=== PATIENT | female | born 1950 | race Caucasian/White ===

== ENCOUNTER 2016-12-22 07:49 | Inpatient (IN) | payer MEDICARE ==
--- NOTE | 2016-12-16 13:41 | NUR ---
JOINT CAMP: Patient attended [facility] joint camp, patient is coming in for total knee replacement. Patient is from home and is not the primary caregiver for anyone. Patient has 7 stairs to enter the home and then once inside the home patient has 20 stairs up and 20 stairs down. Patient's Mal Lazar will be assisting upon arrival home, Mal will also be doing transport day of discharge. Patient has help with getting breakfast made. Patient has never had home health services or senior care. Patient has been connected to outpatient physical therapy. Patient has a bath bench,toilet riser and walker at home.
[2016-12-22] VITALS (11 sets, daily range): BP systolic 119–130; BP diastolic 63–84; PULSE 63–90; RESP 12–18; O2SAT 92–98
[~2016-12-22] VITALS: Ht 177.8 cm; Wt 106.0 kg
[~2016-12-22 07:49] MED LIST: Bupivacaine Liposome 1.3% 20 mL Inj NERVEBLOCK ONE; CeFAZolin Inj 2 GM in IV Premix 1 EACH IV ONE; Lactated Ringer's 1,000 ML IV ONE
[2016-12-22] MEDS ORDERED: Vancomycin 1,000 mg/200 mL NS IV ONE ×2 (08:00→15:05)
[2016-12-22] MEDS: Vancomycin 1 Gm/200 mL NS Premix IV SCH ×3 (08:01→09:22)
[2016-12-22] MEDS ORDERED: IBUP200C11 PO (08:34)
[2016-12-22] MEDS ORDERED: Tranexamic Acid 100 mg/mL 10 mL Inj ONE ×2 (10:44→10:54)
[2016-12-22] MEDS ORDERED: 0.9% Sodium Chloride 100 ML ONE ×2 (10:44→10:54)
[2016-12-22] MEDS ORDERED: Bupivacaine Liposome 1.3% 20 mL Inj ONE (10:45)
--- NOTE | 2016-12-22 10:47 | PCM.HPANE ---
Patient Data Surgeon Admitting Provider: Attending Provider:Cabrera Franco MD Primary Care Physician:Richard Sheikh MD Other Provider:[facility] Reason for Visit Right Knee Arthritis RIGHT KNEE ARTHRITIS Ht/WT & BMI Height (Feet): 5 Height (Inches): 10.00 Weight (Kilograms): 105.950 Body Mass Index 33.00 Allergies Coded Allergies: erythromycin base (Verified Allergy, Unknown, UNKNOWN, 09/06/14) Past Anesthesia History Anesthesia History: Denies:: Abnormal Airway, Anesthesia Reactions, Difficult Intubation, Fam Anesthesia Reaction, Malignant Hyperthermia Diabetes History Hx Diabetes?: No MRSA MRSA: No Medications Home Meds Incl Beta Tiesha: No Reported Medications Ibuprofen (Advil)200 Mg [id number] Mg PO Q6 12/22/16 History History of ENT Problems?: Yes HEENT History: Positive for:: Cataracts (cataract forming, no surgical treatment) Sinus Problem (deviated septum) Denies:: Abnormal Airway Difficult Intubation Dysphagia Hearing Problem TMJ Hx of Heart Problems?: No Cardiovascular History: Denies:: AICD Abdominal Aortic Aneurism Atrial Fibrillation Cardiac Surgery Chest Pain Congestive Heart Failure Edema Heart Murmur Hypertension Irregular Heartbeat Pacemaker Rheumatic Fever Thrombophlebitis Hx of Respiratory Problem?: No Respiratory History: Positive for:: Pneumonia (walking pneumonia "long ago") Denies:: Asthma COPD Emphysema Oxygen Administration Tuberculosis Use of C-PAP Machine Hx Neurologic Problems?: Yes Neurological History: Positive for:: Headaches (related to deviated septum/ seasonal allergies) Denies:: Alzheimer's Disease CVA Dementia Dizziness Multiple Sclerosis Parkinson's Disease Seizures Hx of GI Problems?: Yes Gastrointestinal History: Positive for:: Heartburn (occasional only) Denies:: Cirrhosis Diverticulitis Gastroesphageal Reflux Gastrointestinal Bleeding Hepatitis Hiatal Hernia Rectal Bleeding Hx of Problems?: No Genitourinary History: Denies:: Kidney Stones Urinary Tract Infection Female Hx: Positive for:: Endometriosis Denies:: Currently Problems with Breasts? (breast reduction mammoplasty ) Skin History: Positive for:: History Skin Disorders? (laura- MD aware) Hx Musculoskeletal Problems?: Yes Musculoskeletal History: Positive for:: Degenerative Joint Musculoskeletal Trauma (right knee current admission problem) Osteoarthritis Denies:: Back Injury Joint Replacement Systemic Lupus Hx of Psycho/Social Problems?: No Psycho Social History: Denies:: Anxiety Hx Depression Hx Surgeries?: Yes (knee scope, breast reduction, tonsil, right achilles tendon ) Hx Any Other Health Problems?: Yes Other History: Positive for:: Cancer (right conjuctival cancer- radiation tx) Denies:: Thyroid Disease History Blood Transfusions: Denies:: Blood Transfusions Hx Diabetes: No Hx Alcohol Use: YesHx Substance Use: Yes (cannabis cream to knee ) Smoking Status: Former Smoker Have You Smoked inLast 12 mo: No Stop/Bang S-Snoring: Do You Snore Loudly: No T-Tired: feel tired, fatigued: No O-Obsered: Observed not breath: No P-Blood Pressure: treated: No B- Body Mass Index > 35 kg/m2: No A- Age over 50: Yes N- Neck Large Circumference: No G- Gender Male: No EDI Total Score: 1 Risk Assessment Category Category 1A: Patient has history of documented sleep apnea, and HAS NOT received any narcotic, sedative or anesthesia administration during this stay. Category 1B: Patient has history of documented sleep apnea, and HAS received any narcotic , sedative or anesthesia administration during this stay Category 2: Patient has SUSPECTED Obstructive Sleep Apnea, and HAS received any narcotic , sedative or anesthesia administration during this stay. Category 3: Patient has SUSPECTED Obstructive Sleep Apnea and HAS NOT received narcotic, sedative or anesthesia administration during this stay. Category 4: Outpatient in Procedural Areas with known sleep apnea or who screen positive for High Risk via the STOP/BANG questionnaire. Exam Exam Vital Signs Vital Signs Date Time Temp Pulse Resp B/P Pulse Ox O2 Delivery O2 Flow Rate FiO2 12/22/16 08:58 36.2 71 17 130/84 96 Room Air General Appearance: Alert, Oriented X3, Cooperative, No Acute Distress HEENT/AIRWAY: MP 2 Lungs: Clear to Auscultation Heart: Exam Unremarkable Meds/Labs/Diagnostics Admission Meds Current Medications Lactated Ringer's 1,000 ml @ 120 mls/hr Q8H20M ONCE IV Last administered on 08:32; Start 12/22/16 at 05:00; Stop 12/22/16 at 13:19 Vancomycin/0.9 % Sod Chloride/ Premix (Vancomycin Inj/ IV Premix) 200 ml @ 133.333 mls/hr PREOP IV Last administered on 12/22/16 08:01; Start 12/22/16 at 06:00 Plan Impression Patient chart reviewed, patient interviewed and anesthestic plan with risks, benefits, and alternatives discussed, and informed consent obtained. NPO Status: 2100 12/21/16 ASA Physical Status: ASA2 Mod Systemic Disease Anesthetic Plan: Regional Block (fnb), SAB Bene/Risks/Altern/Consents: Yes HP Complete Prior to Induction: Yes Edouard Poole MD Dec 22, 2016 10:47
[2016-12-22] MEDS ORDERED: Bupivacaine-MPF 0.25%/EPI 30 mL Inj INJ ONE (11:36)
[2016-12-22] MEDS ORDERED: Gentamicin 40 mg/mL 2 mL Inj IRRIGATION ONE (11:38)
[2016-12-22] MEDS ORDERED: Lactated Ringer's 1,000 ML IV SCH (12:03)
[2016-12-22] MEDS ORDERED: Lactated Ringer's 500 ML IV PRN (12:03)
[2016-12-22] MEDS ORDERED: Dexamethasone 4 mg/mL Inj IVPUSH PRN (12:05)
[2016-12-22] MEDS ORDERED: fentaNYL-PF 50 mCg/mL 2 mL Inj IVPUSH PRN (12:05)
[2016-12-22] MEDS ORDERED: EPHEDrine Sulfate 50 mg/mL Inj IVPUSH PRN (12:05)
[2016-12-22] MEDS ORDERED: Phenylephrine 10,000 mCg/mL Inj IVPUSH PRN (12:05)
[2016-12-22] MEDS ORDERED: Ondansetron 2 mg/mL 2 mL Inj IVPUSH PRN ×2 (12:05→14:15)
[2016-12-22] MEDS ORDERED: MetoCLOpramide 5 mg/mL 2 mL Inj IVPUSH PRN ×2 (12:05→14:15)
[2016-12-22] MEDS ORDERED: HYDROmorphone 1 mg/mL Inj IVPUSH PRN (12:05)
[2016-12-22] MEDS ORDERED: fentaNYL-PF 50 mCg/mL 2 mL Inj ONE (13:36)
[2016-12-22] MEDS ORDERED: Bupiv-Spinal 0.75%/Dex 8.25% 2 mL Inj ONE (13:36)
[2016-12-22] MEDS ORDERED: Propofol 10,000 mCg/mL 20 mL Inj ONE (13:36)
[2016-12-22 13:51] LABS: APPEARANCE,URINE HAZY (CLEAR,HAZY); COLOR,URINE STRAW (YELLOW); OCCULT BLOOD,URINE NEGATIVE (NEGATIVE); UROBILINOGEN,URINE NORMAL (NORMAL)
--- NOTE | 2016-12-22 13:51 | DRSVH ---
PROCEDURE: X-RAY RIGHT KNEE, ONE OR TWO VIEWS ([id number]) INDICATIONS: POST RIGHT TKA TECHNIQUE: 2 view(s) of the knee acquired. COMPARISON: None. FINDINGS: Bones: Patient is status post knee joint arthroplasty. Hardware components are in expected position s. Visualized bony structures are intact. Soft tissues: Overlying postoperative changes are noted. IMPRESSION: Expected appearance status post placement of right knee arthroplasty. Dictated by: Aleksey JARAMILLO Interpreted: Awa Lennon MD on 12/22/2016 at 13:50 Transcribed by: JOE on 12/22/2016 at 13:51 Approved by: Awa Lennon M.D. on 12/23/2016 at 10:38
[2016-12-22] MEDS: Lactated Ringer's 1,000 ML IV SCH (14:12)
[2016-12-22] MEDS ORDERED: hydrOXYzine Pamoate 25 mg Capsule PO PRN (14:15)
[2016-12-22] MEDS ORDERED: Vancomycin Dose per Pharmacist XX ONE (14:15)
[2016-12-22] MEDS ORDERED: HYDROcodone-APAP 5-325 mg Tablet PO PRN (14:15)
[2016-12-22] MEDS ORDERED: Magnesium Hydroxide 10 mL Oral Concentration PO PRN (14:15)
[2016-12-22] MEDS ORDERED: diphenhydrAMINE 25 mg Capsule PO PRN ×2 (14:15→15:05)
[2016-12-22] MEDS ORDERED: Sodium Biphos-Phos 133 mL Enema RECTAL PRN (15:05)
--- NOTE | 2016-12-22 15:08 | PCM.ANEP1 ---
Post Anesthesia Phase 1 PACU Phase 1 Assessment Vital Signs Vital Signs Date Time Temp Pulse Resp B/P Pulse Ox O2 Delivery O2 Flow Rate FiO2 12/22/16 13:36 36.5 65 16 127/78 95 Room Air 12/22/16 13:05 63 12 122/68 96 Room Air 12/22/16 13:04 12 97 12/22/16 12:55 36.6 71 14 126/67 98 Room Air 12/22/16 12:50 75 14 119/78 97 Room Air 12/22/16 12:45 85 14 122/77 97 Room Air 12/22/16 12:40 14 96 12/22/16 12:40 71 14 126/63 97 Room Air 12/22/16 12:35 36.1 90 14 120/79 94 Room Air 12/22/16 08:58 36.2 71 17 130/84 96 Room Air Anesthetic Administered: Regional Block, SAB Level of Alertness: Awake, talking CHAN's with Equal Strength: No Pain: No Nausea or Vomiting: No Oxygen Delivery: Room Air Lungs: Clear to Auscultation Dermatome Level: L3,4 (Thigh) Edouard Poole MD Dec 22, 2016 15:08
--- NOTE | 2016-12-22 15:09 | PCM.ANEP2 ---
Post Anesthesia Evaluation ASA/CMS Post Anesthesia VS in Patient's Normal Range?: Yes Resp Stable; Airway Patent?: Yes CV Function & Hydration Stable: Yes Mental Status Recovered?: Yes Pain control Satisfactory?: Yes N/V Control Satisfactory?: Yes Edouard Poole MD Dec 22, 2016 15:09
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
[2016-12-22] MEDS ORDERED: Ondansetron 8 mg ODT Tablet PO PRN (15:20)
--- NOTE | 2016-12-22 15:59 | NUR ---
Evaluation completed. Please go to "Notes" then click on "Assessments and Notes" (bottom left corner of screen). Then select appropriate discipline tab on top of screen.
[2016-12-22] MEDS: hydrOXYzine Pamoate 25 mg Capsule PO PRN ×2 (16:42→21:31)
[2016-12-22] MEDS: CeFAZolin Inj 2 GM in IV Premix 1 EACH IV SCH (21:37)
--- NOTE | 2016-12-22 22:34 | OP ---
[address] [address] OPERATIVE REPORT PATIENT: AKIN BEST : 1950 MR#: [id number] ADMIT: 12/22/2016 JOB ID: [id number] DATE OF SURGERY: 12/22/2016 PREOPERATIVE DIAGNOSIS(ES): Advanced arthritis, medial compartment of right knee with lateral compartment changes. POSTOPERATIVE DIAGNOSIS(ES): Advanced arthritis, medial compartment of right knee with lateral compartment changes. PROCEDURE: Total knee replacement. SURGEON: Cabrera Franco MD. HELMET COVERER: Mellisa Yee PA-C. Emblem Drawer In required due to the complexity of the operation. INDICATIONS: This woman has had progressive and now very significant disability associated with her knee. She elects to proceed with a knee replacement. She understands and accepts the potential for risks and complications, which includes, but is not limited to, infection, thromboembolic, neurovascular events, as well as potential for implant failure. Understanding these, she wishes to proceed. PROCEDURE: The patient is prepped and draped in the usual sterile fashion. An anteromedial approach made. Dissection was carried down. The patella was subluxed laterally, cut transversely, sized to a 32. Patellar component drill holes were made for this. Patellar protection plate was utilized. Drill hole placed in the distal femur and a 5 degree valgus cut was made. The femur was sized to a 7 chamfer block fixed in appropriate position. Rotation, drill holes and chamfer cuts were made. The tibia was cut with the extramedullary tool sized to an E tibial component, fixed in appropriate position, rotation, excellent patellar tracking, soft tissue tension, flexion, extension and balance were noted. Wounds irrigated with sterile irrigation intermittently through the procedure. The tibial plate was placed in appropriate position, rotation, drill holes, punch were utilized. Trial reduction was performed. A 10 mm polyethylene produced excellent soft tissue tension and tracking. All meniscal tissue and osteophytes were carefully removed. Pressurized lavage was followed by pressurized cementation of the components. Excess cement was removed during the curing process. The patient was taken to the recovery room in stable condition. She tolerated the procedure well. There were no complications.
[2016-12-23 00:19] VITALS: BP 120/71; PULSE 70; RESP 18; O2SAT 94
[2016-12-23] MEDS: hydrOXYzine Pamoate 25 mg Capsule PO PRN ×4 (02:49→19:20)
[2016-12-23] MEDS: Lactated Ringer's 1,000 ML IV SCH ×2 (02:51→23:21)
--- NOTE | 2016-12-23 04:13 | NUR ---
Pain Patient states pain level is 8/10 on pain scale. Roxicodone and Vistaril administered x 2 during shift. . Ice applied to right knee. Patient has good movement with right lower extremity. Advise patient to call for breakthrough pain. Patient bedrest throughout shift. Estrada draining to gravity. LEONILA drain draining sanguinous fluid. VSS. Call light within reach. Care continues.
[2016-12-23 04:22] VITALS: BP 109/67; PULSE 72; RESP 18; O2SAT 96
[2016-12-23] MEDS: CeFAZolin Inj 2 GM in IV Premix 1 EACH IV SCH (05:15)
[2016-12-23 07:09] LABS: BASOPHILS % (AUTO) 0.1 % (0-3); EOSINOPHILS % (AUTO) 0.1 % (0-5); MONOCYTES % (AUTO) 6.8 % (4-12); Mean Corpuscular Hemoglobin 29.2 pg (27.0-35.0); Mean Corpuscular Volume 85.7 fL (81-100); NEUTROPHILS % (AUTO) 79.6 % (40-74); Platelet Count 236 bil/L (150-400)
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
[2016-12-23] MEDS ORDERED: VANCOMYCIN IV ONE (08:00)
[2016-12-23 10:09] VITALS: BP 92/63; PULSE 66; O2SAT 97
[2016-12-23 10:11] VITALS: BP 116/67; PULSE 61; RESP 18; O2SAT 96
[2016-12-23 14:30] VITALS: BP 125/70; PULSE 75; RESP 18; O2SAT 94
[2016-12-23 19:47] VITALS: BP 157/75; PULSE 79; RESP 20; O2SAT 96
[2016-12-24] MEDS: hydrOXYzine Pamoate 25 mg Capsule PO PRN ×4 (00:43→12:46)
[2016-12-24] MEDS: oxyCODONE-Acetamin 5-325 mg Tablet PO PRN ×4 (00:45→12:46)
[2016-12-24 00:54] VITALS: BP 155/80; PULSE 64; RESP 20; O2SAT 96
--- NOTE | 2016-12-24 03:01 | NUR ---
IV left arm On initial assessment, patient's IV site was red and swollen. IV saline locked. Warm packs applied to arm wrapped in a warm blanket. Patient expressed anxiety about IV site. Patient reassured. Pain medication administered for knee pain with patient stating pain at 8/10 on pain scale. Blood pressure elevated at 157/75. All other VSS. Call light within reach. Care continues.
[2016-12-24 05:37] VITALS: BP 156/85; PULSE 87; RESP 20; O2SAT 96
--- NOTE | 2016-12-24 06:10 | NUR ---
Elevated BP Patient's blood pressure has steadily increased in the past 24 hours. Patient is concerned about blood pressure and about being discharged today with the amount of pain she is experiencing . Patient was reassured that this information would be passed on to the next shift.
--- NOTE | 2016-12-24 06:55 | PCM.PNORTH ---
Subjective Date of Service: Dec 24, 2016 Visit Information: Reason for Visit Right Knee Arthritis Surgery/Surgery Date R TKA 12/22/16 Post-Op Day # Date of Admission: Dec 22, 2016 at 13:35 Hospital Day # Subjective Foundation awake and alert this morning and sitting up in bed. Patient displays and verbalizes severe anxiety as morning about every phase of her care and everything that she is feeling. I have reassured her numerous times this morning that what she is experiencing is normal and that she is doing well generally. I explained to her that she has suffered a mild infiltration and some irritation at her IV site and that this is managed with heat in the area. This has been reviewed by the nurse with IV therapy and is any reasonable correct course of action. I explained to her IV will be discontinued today and this will help ease the situation. I explained to the patient this morning after removing her dressing that her wound is in good condition and I see no problems or issues there. I have explained to her in detail how to manage her bandaging and what she should physically be doing on discharge and I have assured her that she will have discharge instructions regarding these issues. I will also reassure the patient that she may call our office at any time if she has questions or concerns about any phase or specific issue regarding her care. We have discussed discharged today which I think is appropriate based on her activity level yesterday Postop General: No Complaints, No Shortness of Breath, No Chest Pain Pain Management: PO Objective Exam Objective Alert and oriented 3 and pleasant and extremely anxious. Interoperative dressing is removed this morning and replaced with an ABDs and fishnet dressing. Patient's operative wound is in good condition and displays no drainage and no focal erythema or swelling. Calf and thigh are soft and nontender. Toe wiggle and sensation are intact at right lower extremity distally. Estrada and wound drain are absent. Patient displays some mild swelling and redness at the left upper arm at the side of her IV which is managed with heat at this time per nursing. Patient achieved the feet in gait yesterday with formal physical therapy. Vital Signs and I/O Vital Sign - Last Date Time Temp Pulse Resp B/P Pulse Ox O2 Delivery O2 Flow Rate FiO2 12/24/16 05:37 36.8 87 20 156/85 96 Room Air Intake and Output 12/23/16 12/23/16 12/24/16 Cumulative From/Thru 15:00 23:00 07:00 12/18/16 11:44 - 12/24/16 06:16 Intake Total 2000 ml 1238 ml 6800 ml Output Total 760 ml 3260 ml Balance 1240 ml 1238 ml 3540 ml Intake Oral 2000 ml 3350 ml IV Total 1238 ml 3450 ml Output Urine Total 700 ml 3170 ml Drainage Total 60 ml 90 ml # Voids 1 1 # Bowel Movements 0 Result Diagram: 12/23/16 0645 General Appearance: Alert, Oriented X3, Cooperative, No Acute Distress Extremities: No Compartment Syndrom Noted, Thigh & Calf Soft/Nontender Postop Sensory Motor: Distal Motor Intact, Movement in Toes, Distal Sensation Intact SURGICAL WOUND : Drain Location Body Site: Knee Wound Drainage Type: Hemovac Activity: Activity per PT, Ambulate with PT (weightbearing as tolerated on the right lower extremity using a front wheeled walker) Catheters: None Assessment & Plan Impression Patient is a 66-year-old old female whom has undergone a right total knee arthroplasty on 12/22/2016 and is postoperative day #2. She has a tendency to foster anxiety and is struggling with this today. Her course is well within normal limits and she is doing well at this time. Problems: Plan Postop day 2 from right total knee arthroplasty performed on 12/22/[address] Cabrera rFanco. Weightbearing as tolerated on the right lower extremity using a front wheeled walker. Continue formal physical therapy for mobility, gait and safety. Patient has arranged outpatient physical therapy to begin soon after discharge. Continue Percocet 5/325 with supplemental Roxicodone as needed for pain control with addition of Vistaril 25-50 mg as needed. Continue ASA 325 mg daily while in house with transition to ASA 81 mg twice a day on discharge for DVT prophylaxis. Interoperative dressing is removed today and wound is found to be in good condition. Silverlon is rewet and left in place and an ABD and fishnet dressing are put in place today. Hemovac drain and Estrada are absent. Patient may shower the wound in 3-4 days if the wound is dry and displaying no drainage for 24 hours. Otherwise the wound may be kept covered with an ABG and fishnet dressing until seen in office in 2 weeks. Follow-up in 2 weeks at [facility] clinic on prearranged appointment with mid-level provider for wound check and suture removal. Follow-up in 6 weeks at [facility] orthopedic clinic on prearranged appointment with Dr. Cabrera Franco with right 2 view knee x-rays on arrival. Anticipate discharge to home today with family has caregivers on postop day #2, 12/24/2016.. VTE Prophylaxis: SCDs (SCD and left lower extremity), BRAEDEN Hose (BRAEDEN hose may be applied bilaterally today by nursing.), Other (ASA 325 mg daily while inpatient for DVT prophylaxis) David Juarez PA-C Dec 24, 2016 06:55
--- NOTE | 2016-12-24 07:05 | PCM.DIORTH ---
Ortho Discharge Instruction Date of Service: Dec 24, 2016 Dates of Hospitalization Date of Hospital Admission Dec 22, 2016 at 13:35 Providers Admitting Physician: Cabrera Franco MD Primary Care Physician: Richard Sheikh MD Attending Physician: Cabrera Franco MD Diet Discharge Diet: No restrictions Activity Discharge Activity-General: Try not to overdue, Be up and about, Balance rest and activity, Ice incision 3-5 time/day for 20min, Activity as pain allows, Activity as energy allows, No driving while taking narcotic Right Lower Extremity: Weight Bearing as tolerated Discharge Assist Device: Front Wheeled Walker Dressing and Incisional Care Discharge Dressing Care: Keep dressing clean, dry & intact, Change soiled dressing Discharge Hygiene: May shower (patient may shower as long as dressing is Clean and dry. Patient may remove dressing in 3-4 days and shower wound as long as it has been dry for 24 hours prior to this.), DO NOT soak incision under water, NO bathtub, hot tub or whirlpool Additional Instructions Discharge Instructions Postop day 2 from right total knee arthroplasty performed on 12/22/[address] Cabrera Franco. Weightbearing as tolerated on the right lower extremity using a front wheeled walker. Continue formal physical therapy for mobility, gait and safety. Patient has arranged outpatient physical therapy to begin soon after discharge. Continue Percocet 5/325 with supplemental Roxicodone as needed for pain control with addition of Vistaril 25-50 mg as needed. Continue ASA 325 mg daily while in house with transition to ASA 81 mg twice a day on discharge for DVT prophylaxis. Interoperative dressing is removed today and wound is found to be in good condition. Silverlon is rewet and left in place and an ABD and fishnet dressing are put in place today. Hemovac drain and Estrada are absent. Patient may shower the wound in 3-4 days if the wound is dry and displaying no drainage for 24 hours. Otherwise the wound may be kept covered with an ABG and fishnet dressing until seen in office in 2 weeks. Follow-up in 2 weeks at [facility] orthopedic clinic on prearranged appointment with mid-level provider for wound check and suture removal. Follow-up in 6 weeks at [facility] orthopedic clinic on prearranged appointment with Dr. Cabrera Franco with right 2 view knee x-rays on arrival. Anticipate discharge to home today with family has caregivers on postop day #2, 12/24/2016 Follow Up Plan Follow Up Plan Patient will be seen at 2 weeks, 6 weeks and 12 weeks postoperatively. Patient will be seen when necessary in the interim. Follow-up Provider (F9): Cabrera Franco MD Mid-level Provider (F9): Mellisa Yee PA-C Follow-up appointment: Weeks (follow-up in 2 weeks at [facility] orthopedic clinic on prearranged appointment with mid-level provider for wound check and suture removal.) Call your provider for: Fever, Chills, Shortness of breath, Vomitting, Drainage at incision David Juarez PA-C Dec 24, 2016 07:05
[2016-12-24] MEDS ORDERED: ASPI-973 PO (07:13)
[2016-12-24] MEDS ORDERED: OXYC1TAB24 PO (07:13)
[2016-12-24] MEDS ORDERED: DOCU-41 PO (07:13)
[2016-12-24] MEDS ORDERED: HYDR-3797 PO (07:13)
--- NOTE | 2016-12-24 07:16 | PCM.DC.ORT ---
Discharge Summary Date of Service: Dec 24, 2016 Date of Hospital Admission: Dec 22, 2016 at 13:35 Date of Surgery: Dec 22, 2016 Date of Discharge: Dec 24, 2016 Reason for Hospitalization: Severe right knee osteoarthritis Procedures Performed: Right total knee arthroplasty Hospital Course: Patient was admitted to the preoperative care unit on 12/22/2016 and upon processing was taken to the operating room where her procedure was performed without incident. Upon awakening patient was taken to the recovery room and upon recovery from anesthesia was transferred to the orthopedic care unit where she participated well with formal physical therapy and received recommendation for discharge on postop day 2. Problems: (1) Osteoarthritis Status: Acute ICD Code: M19.90 Disposition: Discharged to home with family as caregivers Orthopedic Follow up Plan: In Two Weeks in my clinic (Patient will be seen at 2 weeks, 6 weeks and 12 weeks postoperatively. Patient will be seen when necessary in the interim.) Discharge Instructions: Postop day 2 from right total knee arthroplasty performed on 12/22/[address] Cabrera Franco. Weightbearing as tolerated on the right lower extremity using a front wheeled walker. Continue formal physical therapy for mobility, gait and safety. Patient has arranged outpatient physical therapy to begin soon after discharge. Continue Percocet 5/325 with supplemental Roxicodone as needed for pain control with addition of Vistaril 25-50 mg as needed. Continue ASA 325 mg daily while in house with transition to ASA 81 mg twice a day on discharge for DVT prophylaxis. Interoperative dressing is removed today and wound is found to be in good condition. Silverlon is rewet and left in place and an ABD and fishnet dressing are put in place today. Hemovac drain and Estrada are absent. Patient may shower the wound in 3-4 days if the wound is dry and displaying no drainage for 24 hours. Otherwise the wound may be kept covered with an ABG and fishnet dressing until seen in office in 2 weeks. Follow-up in 2 weeks at [facility] orthopedic clinic on prearranged appointment with mid-level provider for wound check and suture removal. Follow-up in 6 weeks at [facility] orthopedic clinic on prearranged appointment with Dr. Cabrera Franco with right 2 view knee x-rays on arrival. Anticipate discharge to home today with family has caregivers on postop day #2, 12/24/2016 Management Plan: Patient will be seen at 2 weeks, 6 weeks and 12 weeks postoperatively. Patient will be seen when necessary in the interim. Aspirin (Aspirin) 81 Mg Tablet 81 MG PO BID Docusate Sodium (Colace) 100 Mg Capsule 100 MG PO BID Hydroxyzine Pamoate (HydrOXYzine Pamoate) 25 Mg Capsule 25-50 MG PO Q4-6H PRN PRN For Restlessness oxyCODONE-Acetaminophen 5-325 mg (oxyCODONE-Acetaminophen 5-325 mg) 1 Each Tablet 1-2 TAB PO Q4-6H PRN PRN For Severe Pain David Juarez PA-C Dec 24, 2016 07:16
--- NOTE | 2016-12-24 11:07 | NUR ---
Social Work-initial assessment/discharge: Data:See initial assessment. Pt is a 66 y/o female who was admitted on 12/22/16 for right knee arthritis per H&P. Pt's insurance is [employer] and [employer]. Pt's PCP is Richard Sheikh MD. EMR reviewed. SW met with pt at bedside to discuss discharge planning, SW role explained. Pt is alert and oriented x3. Pt resides at home with her where she remains independent with ADLS. Pt does not use any DME and drives. Pt has no HH or SNF history. Pt has no [place] [facility] care or [place] benefits. SW discussed DPOA/ advanced directive and pt confirms she has completed this, SW encouraged a copy to be brought into the hospital. PT has cleared pt for home with outpt services. Pt has fww for home use. Pt is medically stable for discharge home today. Pt states she has outpt PT services set up and her will provide transport home today. No discharge needs identified. All updated and agreeable to plan. Assessment:Pt who is independent at baseline. Plan:Pt to discharge home today via POV. Pt to complete outpt PT services. No discharge needs identified. All updated and agreeable to plan. AICHA Suresh Addendum: 12/24/16 at 1109 by ADELINA CARROLL Amended: Links added.
--- NOTE | 2016-12-24 14:04 | NUR ---
Discharge Pt discharged to home with spouse via private vehicle at 1400 hrs. PIV removed intact. VSS. Pain controlled. All personal possessions sent with pt. Discharge and follow up instructions given to pt and she expressed understanding.
== END 2016-12-24 13:45 | disposition home or self-care (01) | DRG 470 ==
LOC: SAS 07:49 → OSC 13:35
PROVIDERS: ADMIT Orthopaedic Surgery; ATTEND Orthopaedic Surgery
PROC: 0SRC0J9 Replacement of Right Knee Joint with Synthetic Substitute, Cemented, Open Approach (ICD-10-PCS; principal; 2016-12-22 09:30)
DX: M17.11 Unilateral primary osteoarthritis, right knee (principal)

== ENCOUNTER 2016-12-28 14:16 | Emergency (ER) | payer MEDICARE ==
[~2016-12-28] VITALS: Ht 175.3 cm; Wt 104.5 kg
[~2016-12-28 14:16] MED LIST changes: +ASPI-973 PO; -Bupivacaine Liposome 1.3% 20 mL Inj NERVEBLOCK ONE; -CeFAZolin Inj 2 GM in IV Premix 1 EACH IV ONE; +DOCU-41 PO; +HYDR-3797 PO; -Lactated Ringer's 1,000 ML IV ONE; +OXYC1TAB24 PO
[2016-12-28 14:35] VITALS: BP 147/84; PULSE 91; RESP 20; O2SAT 94
--- NOTE | 2016-12-28 15:09 | ED.REPORT ---
HPI-Extremity Problem Lower Date of Service Dec 28, 2016 ED Provider: Paige Lamar History of Present Illness: 66-year-old female here for right calf pain. Onset on morning and is gradually getting worse. It is worse with extension and flexion of her ankle. Pain is gone if she is just resting. Pain is most severe with walking pushing off the tip of her toe. She had a total knee replacement done on Thursday 6 days ago. She was discharged from the hospital on Thursday and the pain started the next day. She noticed a slight fever and feeling febrile today. Took her temperature at home and was 99 6. No runny nose, cough, nausea, vomiting. Her incision site is nonpainful, her knee is actually not painful. He has not noted any purulent drainage from the incision site. Taking 81 mg of aspirin twice a day. She is not on estrogens and she has no previous history of DVT. Denies shortness of breath or chest pain Nursing Notes Stated Complaint: POSS DVT,PAIN IN CALF AFTER KNEE REPLACEMENT Chief Complaint: Extremity Trauma Nursing Notes Reviewed: Yes Allergies: Coded Allergies: erythromycin base (Verified Allergy, Unknown, UNKNOWN, 12/28/16) Scheduled Aspirin (Aspirin) 81 Mg Tablet 81 MG PO BID Docusate Sodium (Colace) 100 Mg Capsule 100 MG PO BID Scheduled PRN Hydroxyzine Pamoate (HydrOXYzine Pamoate) 25 Mg Capsule 25-50 MG PO Q4-6H PRN PRN For Restlessness oxyCODONE-Acetaminophen 5-325 mg (oxyCODONE-Acetaminophen 5-325 mg) 1 Each Tablet 1-2 TAB PO Q4-6H PRN PRN For Severe Pain General Time Seen by MD: 14:53 Chief Complaint Knee injury right Hx Obtained From: Patient Arrived By: Walk-in Onset Occurred: 4 days ago Symptom Duration: Waxes and wanes Location: : Leg right Severity: Current: No pain currently Severity: Maximum: Moderate Pertinent Negative: Pt denies other symptoms Exacerbated by: Range of motion, Movement Relieved by: Rest Recent Healthcare: Recent hospitalization, Previous surgery Similar Sx Previous: No Risk-Extremity Prob Lower Well's Criteria for DVT Immob lower ext (1), Bed >3d/Surg in 4wks (1) Well's DVT Score: 1-2 pts (mod risk 33%) Past Medical History Smoking History Former Smoker Review of Systems Review of Systems Note: R calf pain Basic Review of Systems Eyes: Vision NL, No discharge ENT: Hearing NL, No pain, No nasal congestion, No pharyngeal pain Respiratory: No shortness of breath, No cough, No wheeze Cardiovascular: No chest pain, No dyspnea on exertion, No orthopnea, No parox noct dyspnea, No palpitations GI: No abdominal pain, No anorexia, No nausea, No vomiting Allergy / Immune: No allergy Psychiatric: Normal thought content Constitutional: Reports: Fever Musculoskeletal: Reports: Extremity pain, Extremity swelling Complete sys rev & neg: except as marked. Physical Exam Initial Vital Signs Vital Signs (First) Date Time Temp Pulse Resp B/P Pulse Ox O2 Delivery O2 Flow Rate FiO2 12/28/16 14:35 36.8 91 20 147/84 94 Room Air Initial VS: Vital signs normal General/Constitutional: Well-developed Head / Eyes: Atraumatic, Normocephalic, PERRL Respiratory: Breath sounds normal, Clear to auscultation, No respiratory distress Cardiovascular: Regular rate & rhythm, Heart sounds normal, Intact distal pulses Skin: Warm, Dry, No cyanosis Neurologic: Alert, Oriented, Nonfocal Psychiatric: Mood/affect normal, Behavior normal, Normal thought content Right Knee: Positive: Ecchymosis present, ROM painful, ROM reduced, Swelling present... (Mild), Tenderness present... (Mild), Negative: Erythema present, Warmth present Right Leg / Calf: Positive: Ecchymosis present, Swelling present... (Mild), Tenderness present... (Mild), Negative: Erythema present, Warmth present large area of eccymosis at inner R upper thigh. incision site without erythema, purulent drainage, swelling or tenderness. Surgical site healing well. Most Tender at lower calf/upper achilles tendon. MOderate tenderness with palp of calf. Not obviously enlarged compared to left Interpretation & Diagnostics Interpretation & Diagnostics: Patient Name: AKIN BEST MR#: [id number] [place] [facility] [place] Phys: Paige Lamar Date of Service: 12/28/16 1519 PROCEDURE: US VEINOUS LEG DUPLEX UNILATERAL, RIGHT INDICATIONS: calf pain wtih previous surgery TECHNIQUE: Real-time imaging, as well as color and pulse Doppler interrogation, were performed of the lower extremity deep veins from the inguinal ligament to the popliteal fossa. COMPARISON: None. FINDINGS: The deep veins are normally compressible, and free of intraluminal thrombus. Color and pulse Doppler demonstrate normal phasic intraluminal flow. There is normal augmentation response to distal compression maneuver. IMPRESSION: No evidence of right lower extremity DVT. Lab Results Interpretation Result Diagram: 12/28/16 1550 12/28/16 1550 Test 12/28/16 15:50 White Blood Count 7.3th/mm3 (3.8-10.1) Red Blood Count 4.28mil/mm3 (3.90-5.20) Hemoglobin 12.4g/dL (12.0-15.6) Hematocrit 35.9% (35.0-46.0) Mean Corpuscular Volume 83.9fL (81-100) Mean Corpuscular Hemoglobin 29.0pg (27.0-35.0) Mean Corpuscular Hemoglobin Concent 34.5% (32.0-37.0) Red Cell Distribution Width 12.1% (12.3-15.4) Platelet Count 315bil/L (150-400) Neutrophils (%) (Auto) 72.8% (40-74) Lymphocytes (%) (Auto) 17.5% (14-46) Monocytes (%) (Auto) 7.6% (4-12) Eosinophils (%) (Auto) 1.7% (0-5) Basophils (%) (Auto) 0.3% (0-3) D-Dimer 4.76mg/L FEU (<0.50) Sodium Level 132mEq/L (134-144) Potassium Level 4.2mEq/L (3.5-5.2) Chloride Level 94mEq/L (97-108) Carbon Dioxide Level 23mmol/L (18-29) Blood Urea Nitrogen 15mg/dL (8-27) Creatinine 0.51mg/dL (0.57-1.00) Estimat Glomerular Filtration Rate 172mL/min (>59) Glucose Level 110mg/dL (60-99) Calcium Level 9.4mg/dL (8.5-10.1) Total Bilirubin 0.6mg/dL (0.0-1.2) Aspartate Amino Transf (AST/SGOT) 17U/L (0-50) Alanine Aminotransferase (ALT/SGPT) 17U/L (0-32) Alkaline Phosphatase 133U/L (25-165) Total Protein 7.6g/dL (6.4-8.4) Albumin 3.9g/dL (3.4-5.0) Hold Kaur Top Tube Received (Received) Re-Eval/Medical Decision Med Decision/Clinical Course 1540- neg for DVT Discharge & Departure Shift Change Sign-Out Laboratory Evaluation: Lab evaluation discussed Imaging Studies: Imaging discussed Impression: Primary Impression: Achilles tendinosis of right lower extremity Additional Impression: Strain of calf muscle Encounter type: initial encounter Laterality: right Qualified Code: S86.811A - Strain of other muscle(s) and tendon(s) at lower leg level, right leg , initial encounter Disposition: Home Discharge Condition All VS Reviewed: Yes Condition: Stable Patient Instructions: Achilles Tendinitis (ED) Additional Instructions: Limited activity that aggravate your right leg until symptoms improve. It is a fine balance of activity and rest. His regular pain meds as needed. There was no evidence of DVT or infection. Follow-up with your PCP an/or surgeon early this week. Return if severe pains or fevers or worsening in condition, including shortness of breath. Referrals: Richard Sheikh MD (PCP) Cabrera Franco MD EDSupervising Provider for APC: Rafi Echeverria MD copies to: Richard Sheikh MD; Cabrera Franco MD, Linnea K ARNP Dec 28, 2016 15:09
[2016-12-28 15:57] LABS: BASOPHILS % (AUTO) 0.3 % (0-3); EOSINOPHILS % (AUTO) 1.7 % (0-5); MONOCYTES % (AUTO) 7.6 % (4-12); Mean Corpuscular Volume 83.9 fL (81-100); NEUTROPHILS % (AUTO) 72.8 % (40-74); Platelet Count 315 bil/L (150-400)
--- NOTE | 2016-12-28 16:08 | DRSVH ---
PROCEDURE: US VEINOUS LEG DUPLEX UNILATERAL, RIGHT INDICATIONS: calf pain wtih previous surgery TECHNIQUE: Real-time imaging, as well as color and pulse Doppler interrogation, were performed of the lower extr emity deep veins from the inguinal ligament to the popliteal fossa. COMPARISON: None. FINDINGS: The deep veins are normally compressible, and free of intraluminal thrombus. Color and pu lse Doppler demonstrate normal phasic intraluminal flow. There is normal augmentation response to di stal compression maneuver. IMPRESSION: No evidence of right lower extremity DVT. Dictated by: Aide Myrick M.D. on 12/28/2016 at 16:06 Approved by: Aide Myrick M.D. on 12/28/2016 at 16:06
[2016-12-28 16:52] VITALS: BP 147/84; PULSE 91; RESP 20; O2SAT 94
== END 2016-12-28 16:52 | disposition home or self-care (01) ==
LOC: SED 14:16
DX: M76.61 Achilles tendinitis, right leg (principal); S86.811A Strain of other muscle(s) and tendon(s) at lower leg level, right leg, initial encounter; X50.1XXA Overexertion from prolonged static or awkward postures, initial encounter; Y92.9 Unspecified place or not applicable; Y93.89 Activity, other specified; Y99.8 Other external cause status; Z47.1 Aftercare following joint replacement surgery; Z96.653 Presence of artificial knee joint, bilateral; Z87.891 Personal history of nicotine dependence; Z79.82 Long term (current) use of aspirin; Z88.1 Allergy status to other antibiotic agents